=== PATIENT | male | born 1985 | race Two or more races ===

== ENCOUNTER 2019-06-20 01:51 | Emergency (ER) | payer OTHER, MEDICAID ==
[~2019-06-20] VITALS: Ht 167.6 cm; Wt 72.6 kg
--- NOTE | 2019-06-20 01:51 | NUR ---
[facility] [employer] FOR MEDICAL CLEARANCE FOR BOOKING. PT C/O ABDOMINAL PAIN WITH N/V XDAYS. PT ADMITS TO USING HEROIN. PT AAOX4 NO ACUTE DISTRESS NOTED, RESP EVEN AND UNLABORED. PLACE PT ON CARDIAC MONITORING, CONITNUOUS POX. ER MD AT BEDSIDE TO EVAL PT WITH ORDERS RECEIVED. NOTED PT ACTIVELY VOMITING, NONBILIOUS, NO COFFEE GROUND EMESIS NOTED. WILL CARRY OUT ORDERS.
[2019-06-20] MEDS ORDERED: ONDANSETRON HCL/PF 4 MG/2 ML VIAL ONE (02:08)
[2019-06-20] MEDS ORDERED: LORAZEPAM INJ 2 MG/ML VIAL ONE (02:08)
[2019-06-20 02:25] LABS: BASOPHILS # (AUTO) 0.1 /CMM (0.0-0.2); BASOPHILS % (AUTO) 0.9 % (0.0-2.0); EOSINOPHILS % (AUTO) 0.3 % (0.0-6.0); HEMATOCRIT 50 % (39-51); HEMOGLOBIN 16.6 g/dL (13.5-17.5); LYMPHOCYTES # (AUTO) 1.6 /CMM (0.8-4.8); LYMPHOCYTES % (AUTO) 18.3 % (20.0-44.0); MEAN CORPUSCULAR HGB CONC 33 g/dl (31.0-36.0); MEAN CORPUSCULAR VOLUME 89 fL (80-96); MONOCYTES # (AUTO) 0.6 /CMM (0.1-1.30); NEUTROPHILS # (AUTO) 6.6 /CMM (1.8-8.9); NEUTROPHILS % (AUTO) 73.5 % (43.0-81.0); PLATELET COUNT (AUTO) 465 /CMM (150-450); RED BLOOD CELL COUNT(AUTO) 5.57 MIL/uL (4.5-6.0); WHITE BLOOD COUNT (AUTO) 8.9 K/uL (4.3-11.0)
[2019-06-20] MEDS: LORAZEPAM INJ 2 MG/ML VIAL IV ONE (02:32)
[2019-06-20] MEDS: IV NS 0.9% 1,000 ML BAG IV ONE (02:32)
[2019-06-20] MEDS: ONDANSETRON HCL/PF 4 MG/2 ML VIAL IVP ONE (02:33)
[2019-06-20 02:35] LABS: CALCIUM, SERUM 9.8 mg/dL (8.5-10.1); CARBON DIOXIDE 30 mmol/L (21-32); CHLORIDE 98 mmol/L (98-107); GLUCOSE 94 mg/dL (74-106); POTASSIUM 3.8 mmol/L (3.5-5.1); SODIUM SERUM 139 mmol/L (136-145); UREA NITROGEN, BLOOD 13 mg/dL (7-18)
[2019-06-20 02:36] LABS: APPEARANCE,URINE Clear (CLEAR); BILIRUBIN,URINE MODERATE (NEGATIVE); BLOOD, URINE Negative Ery/uL (NEGATIVE); COLOR,URINE Yellow (YELLOW); KETONES,URINE >=160 (NEGATIVE); LEUKOCYTE ESTERASE ,URINE Negative (NEGATIVE); NITRITE, URINE Negative (NEGATIVE); PH,URINE 8.5 (5.0-8.0); PROTEIN,URINE Trace mg/dl (NEGATIVE); UGLUCOSE Negative (NEGATIVE)
[2019-06-20 02:45] LABS: BACTERIA,URINE Few /HPF (None Seen); RBC,URINE 0-2 /HPF (0-2); SQUAMOUS EPITHELIAL CELL,UR Rare /HPF (None Seen)
[2019-06-20 02:49] LABS: ACETAMINOPHEN 0 ug/ml (10-30); ALANINE AMINOTRANSFERASE 985 U/L (12-78); ALKALINE PHOSPHATASE 108 U/L (46-116); ASPARTATE AMINOTRANSFERASE 551 U/L (15-37); BILIRUBIN,DIRECT 0.4 mg/dL (0.0-0.2); BILIRUBIN,TOTAL 1.2 mg/dL (0.2-1.0); SALICYLATE 1.3 mg/dL (2.8-20.0); TOTAL PROTEIN, SERUM 8.4 g/dL (6.4-8.2)
[2019-06-20 02:50] LABS: ALCOHOL, BLOOD < 3 mg/dL (0-0)
--- NOTE | 2019-06-20 04:28 | NUR ---
Patient is resting comfortably in bed with eyes closed. Easily aroused. VSS
--- NOTE | 2019-06-20 05:41 | NUR ---
PT MEDICALLY CLEAR FOR D/C AND BOOKING. IV removed. Catheter intact and site benign. Pressure and 4x4 applied to site. No bleeding noted.[facility] in stable condition. Written and verbal after care instructions given. Patient verbalizes understanding of instruction.
[2019-06-20 05:44] VITALS: BP 133/78
== END 2019-06-20 05:45 ==
LOC: ER 01:55
DX: R10.9 Unspecified abdominal pain (principal); R11.2 Nausea with vomiting, unspecified; F17.200 Nicotine dependence, unspecified, uncomplicated
CPT/HCPCS: 36415; 80048; 80076; 80305; 80307; 80329; 81001; 85025; 96361; 96374; 96375; 99284; G0480; J2060; J2405; J7030; 81000-TC